=== PATIENT | male | born 1955 | race Caucasian/White ===

== ENCOUNTER 2021-04-04 08:40 | Outpatient (CLI) | payer BC | END 2021-04-04 08:41 | disposition home or self-care (01) | LOC: BICULT 08:40 | PROVIDERS: ATTEND Family Medicine | DX: R10.31 Right lower quadrant pain (principal) | CPT/HCPCS: 76856 ==

== ENCOUNTER 2021-06-24 11:22 | Outpatient (CLI) | payer BC ==
[2021-06-24 13:03] LABS: #Basophils 0.1 10x3/uL (0.0-0.2); #Eosinphils 0.2 10x3/uL (0.0-0.5); #Monocytes 0.9 10x3/uL (0.0-1.1); #Neutrophils 6.2 10x3/uL (1.5-8.4); %Basophils 0.9 % (0.0-2.0); %Lymphocytes 27.1 % (18.0-47.0); %Monocytes 8.7 % (0.0-10.0); %Neutrophils 60.9 % (40.0-75.0); Hemoglobin 16.4 g/dL (13.5-17.5); Mean Corpuscular HGB CONC 34.7 g/dL (32.0-36.0); Mean Corpuscular Hemoglobin 30.8 pg (27.0-33.0); Mean Corpuscular Volume 88.9 fl (81.2-95.1); Mean Platelet Volume 9.1 fl (7.4-10.4); Platelet Count 309 10x3/uL (150-450); RBC Distribution Width 12.4 % (11.5-14.5); Red Blood Cell (RBC) Count 5.32 10x6/uL (4.32-5.72); White Blood Cell (WBC) Count 10.2 10x3/uL (3.5-10.5)
[2021-06-24 13:33] LABS: Anion Gap 15 mmol/L (10-20); BUN (Urea Nitrogen) 11 mg/dL (8.4-25.7); Calc. Creatinine Clearance 0 mL/min (70-130); Calcium 9.9 mg/dL (7.8-10.44); Carbon Dioxide 23 mmol/L (23-31); Chloride 104 mmol/L (98-107); Glucose 138 mg/dL (80-115); Potassium 4.6 mmol/L (3.5-5.1); Sodium 137 mmol/L (136-145)
[2021-06-24 22:15] LABS: SARS-CoV-2 PCR by NAA Not Detected (NotDetected)
== END 2021-06-24 11:23 | disposition home or self-care (01) ==
LOC: LABBT 11:22
PROVIDERS: ATTEND Thoracic Surgery (Cardiothoracic Vascular Surgery)
DX: Z01.818 Encounter for other preprocedural examination (principal); Z20.822 Contact with and (suspected) exposure to COVID-19
CPT/HCPCS: 71045; 80048; 85025; 86850; 86900; 86901; U0003; U0005

== ENCOUNTER 2021-06-24 12:15 | Inpatient (IN) | payer BC ==
[2021-06-23 11:20] VITALS: BMI 30.9
[2021-06-24 13:03] LABS: #Basophils 0.1 10x3/uL (0.0-0.2); #Eosinphils 0.2 10x3/uL (0.0-0.5); #Monocytes 0.9 10x3/uL (0.0-1.1); #Neutrophils 6.2 10x3/uL (1.5-8.4); %Basophils 0.9 % (0.0-2.0); %Lymphocytes 27.1 % (18.0-47.0); %Monocytes 8.7 % (0.0-10.0); %Neutrophils 60.9 % (40.0-75.0); Hemoglobin 16.4 g/dL (13.5-17.5); Mean Corpuscular HGB CONC 34.7 g/dL (32.0-36.0); Mean Corpuscular Hemoglobin 30.8 pg (27.0-33.0); Mean Corpuscular Volume 88.9 fl (81.2-95.1); Mean Platelet Volume 9.1 fl (7.4-10.4); Platelet Count 309 10x3/uL (150-450); RBC Distribution Width 12.4 % (11.5-14.5); Red Blood Cell (RBC) Count 5.32 10x6/uL (4.32-5.72); White Blood Cell (WBC) Count 10.2 10x3/uL (3.5-10.5)
[2021-06-24 13:33] LABS: Anion Gap 15 mmol/L (10-20); BUN (Urea Nitrogen) 11 mg/dL (8.4-25.7); Calc. Creatinine Clearance 0 mL/min (70-130); Calcium 9.9 mg/dL (7.8-10.44); Carbon Dioxide 23 mmol/L (23-31); Chloride 104 mmol/L (98-107); Glucose 138 mg/dL (80-115); Potassium 4.6 mmol/L (3.5-5.1); Sodium 137 mmol/L (136-145)
[2021-06-24 22:15] LABS: SARS-CoV-2 PCR by NAA Not Detected (NotDetected)
[2021-06-28] MEDS ORDERED: Lidocaine 1% MPF 2 ML VIAL ONE (05:49)
[2021-06-28] MEDS ORDERED: Dexamethasone 4 mg/ml Vial ONE (06:32)
[2021-06-28] MEDS ORDERED: Bupivacaine 0.25% HCL 30 ML VIAL ONE (06:32)
[2021-06-28] MEDS ORDERED: PHENYLEPHRINE-NS 100 MCG/ML 10 ML SYRINGE ONE ×2 (06:32→07:36)
[2021-06-28] MEDS ORDERED: EPINEPHrine 1 MG/ML AMP ONE (06:32)
[2021-06-28] MEDS ORDERED: Albumin 5% 500 ML ONE (06:32)
[2021-06-28] MEDS ORDERED: Fentanyl 250 MCG/5 ML VIAL ONE (06:48)
[2021-06-28] MEDS ORDERED: Midazolam HCl 5 mg/5 ml Vial ONE (06:48)
[2021-06-28] MEDS ORDERED: Heparin 10,000 UNITS/1 ML VIAL 30,000 UNITS in Sodium Chloride 0.9% 1,000 ML FS SCH (07:00)
[2021-06-28] MEDS ORDERED: Midazolam HCl 2 mg/2 ml Vial ONE (07:20)
[2021-06-28] MEDS ORDERED: ceFAZolin (BATCH) 2 GM/100 ML BAG ONE (07:21)
[2021-06-28] MEDS ORDERED: Protamine Sulfate 50 MG/5 ML VIAL ONE (07:36)
[2021-06-28] MEDS ORDERED: Lidocaine 2% PF 100 mg/5 ml Syringe ONE (07:36)
[2021-06-28] MEDS ORDERED: Ondansetron PF 4 MG/2 ML Vial ONE (07:36)
[2021-06-28] MEDS ORDERED: PROPOFOL 200 MG/20 ML VIAL ONE (07:36)
[2021-06-28] MEDS ORDERED: Heparin 30,000 units/30 ml VIAL ONE (07:36)
[2021-06-28] MEDS ORDERED: Magnesium Sulfate 1 GM/2 ML VIAL ONE (07:36)
[2021-06-28] MEDS ORDERED: Cardioplegic Soln 1,000 ML BAG ONE (07:36)
[2021-06-28] MEDS ORDERED: ePHEDrine 50 MG/ML VIAL ONE (07:36)
[2021-06-28] MEDS ORDERED: Calcium Chloride 1 GM/10 ML Abboject SYRINGE ONE (07:36)
[2021-06-28] MEDS ORDERED: Glycopyrrolate 0.2 MG/ML 5 ML SYRINGE ONE (07:36)
[2021-06-28] MEDS ORDERED: Mannitol 12.5 GM/50 ML ONE (07:36)
[2021-06-28] MEDS ORDERED: Papaverine 60 MG/2 ML VIAL ONE (07:36)
[2021-06-28] MEDS ORDERED: Vecuronium 10 MG VIAL ONE (07:36)
[2021-06-28] MEDS ORDERED: Heparin 5,000 UNITS/ML VIAL ONE (07:36)
[2021-06-28] MEDS ORDERED: Thrombin 5000 UNITS/5 ML VIAL ONE (07:36)
[2021-06-28] MEDS ORDERED: Aminocaproic Acid 5 GM/20 ML VIAL ONE (07:36)
[2021-06-28] MEDS ORDERED: Sodium Bicarb 50 MEQ/50 ML Abboject 8.4% SYRINGE ONE (07:36)
[2021-06-28] MEDS ORDERED: Fentanyl 100 MCG/2 ML VIAL ONE (10:25)
[2021-06-28] MEDS ORDERED: Bisacodyl 5 MG TAB PO PRN (10:41)
[2021-06-28] MEDS ORDERED: traMADol HCl 50 MG TAB PO PRN (10:41)
[2021-06-28] MEDS ORDERED: Nitroglycerin 50 MG/250 ML BOT 250 ML IVPB PRN (10:41)
[2021-06-28] MEDS ORDERED: Ondansetron PF 4 MG/2 ML Vial IVP PRN (10:41)
[2021-06-28] MEDS ORDERED: Guaifenesin DM 100-10/5 ML UDCUP PO PRN (10:41)
[2021-06-28] MEDS ORDERED: Bisacodyl 10 MG SUPP PR PRN (10:41)
[2021-06-28] MEDS ORDERED: Mag-Al 1200 mg/1200 mg/30 ML UDCUP PO PRN (10:41)
[2021-06-28] MEDS ORDERED: DOPamine 400 MG/D5W 250 ML 250 ML IVPB PRN (10:41)
[2021-06-28] MEDS ORDERED: Potassium Chloride 20 MEQ/100 ML PREMIX BAG IVPB PRN (10:41)
[2021-06-28] MEDS ORDERED: Promethazine HCl 25 MG/ML VIAL IM PRN (10:41)
[2021-06-28] MEDS ORDERED: Fentanyl 100 MCG/2 ML VIAL SLOW IVP PRN (10:41)
[2021-06-28] MEDS ORDERED: Hetastarch 6% 500 ML 500 ML IVPB PRN (10:41)
[2021-06-28] MEDS ORDERED: Morphine 2 MG/ML VIAL SLOW IVP PRN (10:41)
[2021-06-28] MEDS ORDERED: Acetaminophen 325 MG TAB PO PRN (10:41)
[2021-06-28] MEDS ORDERED: Prevnar 13-Val Conj/PF 0.5 ML SYRINGE IM ONE (10:45)
[2021-06-28] MEDS ORDERED: Magnesium 2 GM/50 ML 2 GM in Premix Bag 1 BAG IVPB SCH (10:45)
[2021-06-28] MEDS ORDERED: D5 1/2 NS w/20 mEq KCL 1,000 ML IV SCH (10:45)
[2021-06-28 11:04] LABS: Actual Bicarbonate (HCO3a) 24.7 mEq/L (22-28); Base Excess (BEa) -1.8 mEq/L (-2.0 to +3.0); CO2 Tension 48.9 mmHg (35.0-45.0); Carboxyhemoglobin (COHb) 0.4 gm% (0.0-3.0); Hemoglobin (Hb) 13.3 g/dL (14.0-18.0); O2 Tension (PaO2), arterial 80.6 mmHg (> 80.0); pH, Arterial 7.32 (7.35-7.45)
[2021-06-28 11:05] LABS: ALV-art Gradient 286.075 mmHg (0-20); Puncture Site Arterial Line
[2021-06-28] MEDS ORDERED: Nitroglycerin 50 MG/250 ML BOT 250 ML ONE (11:05)
[2021-06-28 11:13] LABS: Mean Corpuscular HGB CONC 32.9 g/dL (32.0-36.0); Mean Corpuscular Volume 97.2 fL (78.0-98.0); Mean Platelet Volume 6.6 fL (7.4-10.4); Platelet Count 246 thou/uL (130-400); RBC Distribution Width 11.7 % (11.5-14.5); Red Blood Cell (RBC) Count 4.05 mill/uL (4.70-6.10); White Blood Cell (WBC) Count 27.8 thou/uL (4.8-10.8)
[2021-06-28] MEDS ORDERED: Morphine 4 MG/ML VIAL SLOW IVP PRN (11:15)
[2021-06-28] MEDS ORDERED: HUMULIN R 100 UNITS in Sodium Chloride 0.9% 100 ML IVPB SCH (11:15)
[2021-06-28] MEDS ORDERED: Dextrose 5% in Water 1,000 ML IV PRN (11:15)
[2021-06-28] MEDS ORDERED: Dextrose 50% Abboject 50 ML SYRINGE SLOW IVP PRN (11:15)
[2021-06-28 11:20] LABS: INR-International Normal Ratio 1.2; PTT 31.2 sec (22.9-36.1); Prothrombin Time 15.3 sec (12.0-14.7)
[2021-06-28] MEDS: Ketorolac Tromethamine 30 MG/ML VIAL IVP SCH ×2 (11:23→17:10)
[2021-06-28 11:27] LABS: Anion Gap 12 mmol/L (10-20); BUN (Urea Nitrogen) 14 mg/dL (8.4-25.7); Calc. Creatinine Clearance 103 mL/min (70-130); Calcium 7.5 mg/dL (7.8-10.44); Carbon Dioxide 22 mmol/L (23-31); Chloride 110 mmol/L (98-107); Glucose 209 mg/dL (80-115); Potassium 4.5 mmol/L (3.5-5.1); Sodium 139 mmol/L (136-145)
[2021-06-28 11:32] LABS: Band 11 % (5-11); Eosinophils 1 % (0-10); Lymphocytes 16 % (21-51); MDiff Complete? YES; Monocytes 3 % (0-10); Neutrophil 69 % (42-75); Platelet Morphology Comment Appears Adequate; RBC Morphology Normal
[2021-06-28 13:34] LABS: Actual Bicarbonate (HCO3a) 22.9 mEq/L (22-28); Base Excess (BEa) -2.5 mEq/L (-2.0 to +3.0); CO2 Tension 41.8 mmHg (35.0-45.0); Carboxyhemoglobin (COHb) 0.5 gm% (0.0-3.0); Hemoglobin (Hb) 13.6 g/dL (14.0-18.0); O2 Tension (PaO2), arterial 129.4 mmHg (> 80.0); Potassium - ABG Lab 3.91 mmol/L (3.70-5.30); pH, Arterial 7.36 (7.35-7.45)
[2021-06-28 13:36] LABS: Puncture Site Arterial Line
[2021-06-28] MEDS: CEFAZOLIN 2 GM, Admixture Fee 1 EACH in Sodium Chloride 0.9% 100 ML IVPB SCH ×2 (13:52→22:47)
[2021-06-28 16:45] LABS: Hemoglobin 13.6 g/dL (14.0-18.0)
[2021-06-28 16:58] LABS: Potassium 4.1 mmol/L (3.5-5.1)
[2021-06-28] MEDS: Insulin Regular 300 UNITS/3 ML VIAL SC PRN (20:16)
[2021-06-28] MEDS: Atorvastatin Calcium 40 MG TAB PO SCH (20:16)
[2021-06-28] MEDS: Ezetimibe 10 MG TAB PO SCH (20:16)
[2021-06-28] MEDS ORDERED: Famotidine/PF 20 mg/2ml Vial SLOW IVP SCH (21:00)
[2021-06-29] MEDS: Insulin Regular 300 UNITS/3 ML VIAL SC PRN ×2 (00:18→04:11)
[2021-06-29] MEDS: Ketorolac Tromethamine 30 MG/ML VIAL IVP SCH ×5 (00:19→23:16)
[2021-06-29 04:54] LABS: #Lymphocytes 1.2 thou/uL (1.20-3.40); #Monocytes 2.2 thou/uL (0.11-0.59); #Neutrophils 15.4 thou/uL (1.40-6.50); %Basophils 0.1 % (0.0-1.0); %Lymphocytes 6.3 % (21.0-51.0); %Monocytes 11.6 % (0.0-10.0); Hemoglobin 12.6 g/dL (14.0-18.0); Mean Corpuscular HGB CONC 33.3 g/dL (32.0-36.0); Mean Corpuscular Hemoglobin 32.5 pg (27.0-31.0); Mean Corpuscular Volume 97.5 fL (78.0-98.0); Platelet Count 232 thou/uL (130-400); RBC Distribution Width 11.8 % (11.5-14.5); Red Blood Cell (RBC) Count 3.88 mill/uL (4.70-6.10); White Blood Cell (WBC) Count 18.8 thou/uL (4.8-10.8)
[2021-06-29 05:24] LABS: Anion Gap 13 mmol/L (10-20); BUN (Urea Nitrogen) 15 mg/dL (8.4-25.7); Calc. Creatinine Clearance 121 mL/min (70-130); Calcium 7.9 mg/dL (7.8-10.44); Carbon Dioxide 19 mmol/L (23-31); Chloride 106 mmol/L (98-107); Glucose 139 mg/dL (80-115); Potassium 4.3 mmol/L (3.5-5.1); Sodium 134 mmol/L (136-145)
[2021-06-29] MEDS: CEFAZOLIN 2 GM, Admixture Fee 1 EACH in Sodium Chloride 0.9% 100 ML IVPB SCH (06:03)
[2021-06-29] MEDS ORDERED: hydrALAZINE 20 MG/ML VIAL SLOW IVP PRN (06:57)
[2021-06-29] MEDS: Magnesium 2 GM/50 ML 2 GM in Premix Bag 1 BAG IVPB SCH (07:31)
[2021-06-29] MEDS ORDERED: Lisinopril 20 MG TAB PO SCH (09:00)
[2021-06-29] MEDS ORDERED: Aspirin 325 MG TAB PO SCH (09:00)
[2021-06-29] MEDS ORDERED: Insulin Glargine 30 UNITS/0.3 ML VIAL SC PRN (11:06)
[2021-06-29] MEDS: traMADol HCl 50 MG TAB PO PRN (11:27)
[2021-06-29] MEDS: Fentanyl 100 MCG/2 ML VIAL SLOW IVP PRN ×3 (13:58→21:13)
[2021-06-29] MEDS ORDERED: ALPRAZolam 0.25 MG TAB PO PRN (14:15)
[2021-06-29] MEDS: Cyclobenzaprine 10 MG TAB PO PRN ×2 (15:57→21:14)
[2021-06-29] MEDS: Atorvastatin Calcium 40 MG TAB PO SCH (21:14)
[2021-06-29] MEDS: Ezetimibe 10 MG TAB PO SCH (21:14)
[2021-06-30 04:00] LABS: #Lymphocytes 2.2 thou/uL (1.20-3.40); #Monocytes 2.5 thou/uL (0.11-0.59); #Neutrophils 14.5 thou/uL (1.40-6.50); %Basophils 0.1 % (0.0-1.0); %Eosinophils 0.1 % (0.0-10.0); %Lymphocytes 11.5 % (21.0-51.0); %Monocytes 12.8 % (0.0-10.0); %Neutrophils 75.4 % (42.0-75.0); Hemoglobin 11.7 g/dL (14.0-18.0); Mean Corpuscular HGB CONC 33.5 g/dL (32.0-36.0); Mean Corpuscular Hemoglobin 32.7 pg (27.0-31.0); Mean Corpuscular Volume 97.8 fL (78.0-98.0); Mean Platelet Volume 6.5 fL (7.4-10.4); Platelet Count 187 thou/uL (130-400); RBC Distribution Width 11.8 % (11.5-14.5); Red Blood Cell (RBC) Count 3.56 mill/uL (4.70-6.10); White Blood Cell (WBC) Count 19.2 thou/uL (4.8-10.8)
[2021-06-30 04:20] LABS: Anion Gap 10 mmol/L (10-20); BUN (Urea Nitrogen) 21 mg/dL (8.4-25.7); Calc. Creatinine Clearance 102 mL/min (70-130); Carbon Dioxide 24 mmol/L (23-31); Cardiac Risk 2.7 (Less than 4.5); Chloride 105 mmol/L (98-107); Cholesterol 85 mg/dl (< 200 Desired); Glucose 130 mg/dL (80-115); HDL Cholesterol 32 mg/dL (>60 Neg Risk); LDL Cholesterol, Calculated 39 mg/dL; Potassium 4.1 mmol/L (3.5-5.1); Sodium 135 mmol/L (136-145); Triglycerides 71 mg/dL (Less than 150)
[2021-06-30] MEDS: Ketorolac Tromethamine 30 MG/ML VIAL IVP SCH ×3 (06:02→17:23)
[2021-06-30] MEDS: Cyclobenzaprine 10 MG TAB PO PRN ×2 (06:21→11:03)
[2021-06-30] MEDS ORDERED: Milk Of Magnesia 30 ML UDCUP PO PRN (06:58)
[2021-06-30] MEDS ORDERED: Bisacodyl 10 MG SUPP PR PRN (06:58)
[2021-06-30] MEDS ORDERED: Nitroglycerin 0.4 MG TAB (25 Tab Bottle) SL PRN (06:58)
[2021-06-30] MEDS ORDERED: Zolpidem Tartrate 5 MG TAB PO PRN (06:58)
[2021-06-30] MEDS ORDERED: Bisacodyl 5 MG TAB PO PRN (06:58)
[2021-06-30] MEDS ORDERED: Mag-Al 1200 mg/1200 mg/30 ML UDCUP PO PRN (06:58)
[2021-06-30] MEDS ORDERED: Guaifenesin DM 100-10/5 ML UDCUP PO PRN (06:58)
[2021-06-30] MEDS ORDERED: diphenhydrAMINE 25 MG CAP PO PRN (06:58)
[2021-06-30] MEDS ORDERED: Mineral Oil ENEMA PR PRN (06:58)
[2021-06-30] MEDS: Aspirin 325 mg Enteric Coated Tablet PO SCH (08:46)
[2021-06-30] MEDS: Magnesium 2 GM/50 ML 2 GM in Premix Bag 1 BAG IVPB SCH (08:46)
[2021-06-30] MEDS: Atorvastatin Calcium 40 MG TAB PO SCH (21:14)
[2021-06-30] MEDS: Ezetimibe 10 MG TAB PO SCH (21:15)
[2021-06-30] MEDS: traMADol HCl 50 MG TAB PO PRN (21:15)
[2021-07-01] MEDS: Ketorolac Tromethamine 30 MG/ML VIAL IVP SCH ×3 (00:36→16:48)
[2021-07-01 07:38] VITALS: TEMP 97.9
[2021-07-01] MEDS: Aspirin 325 mg Enteric Coated Tablet PO SCH (08:51)
[2021-07-01 14:26] VITALS: BP 160/78
[2021-07-01] MEDS: traMADol HCl 50 MG TAB PO PRN (16:51)
== END 2021-07-01 17:05 | disposition home or self-care (01) | DRG 236 ==
LOC: SURG A 06-28 05:37 → CCU 06-28 10:53
PROVIDERS: ADMIT Thoracic Surgery (Cardiothoracic Vascular Surgery); ATTEND Thoracic Surgery (Cardiothoracic Vascular Surgery)
PROC: 021109W Bypass Coronary Artery, Two Arteries from Aorta with Autologous Venous Tissue, Open Approach (ICD-10-PCS; principal; 2021-06-28)
PROC: 02100Z9 Bypass Coronary Artery, One Artery from Left Internal Mammary, Open Approach (ICD-10-PCS; 2021-06-28)
PROC: 06BQ4ZZ Excision of Left Saphenous Vein, Percutaneous Endoscopic Approach (ICD-10-PCS; 2021-06-28)
PROC: 5A1221Z Performance of Cardiac Output, Continuous (ICD-10-PCS; 2021-06-28)
PROC: 02L70CK Occlusion of Left Atrial Appendage with Extraluminal Device, Open Approach (ICD-10-PCS; 2021-06-28)
DX: I25.10 Atherosclerotic heart disease of native coronary artery without angina pectoris (principal); Z20.822 Contact with and (suspected) exposure to COVID-19; I10 Essential (primary) hypertension; E78.00 Pure hypercholesterolemia, unspecified; E78.2 Mixed hyperlipidemia; I73.9 Peripheral vascular disease, unspecified; Z78.1 Physical restraint status; Z28.82 Immunization not carried out because of caregiver refusal; Z79.899 Other long term (current) drug therapy; Z79.51 Long term (current) use of inhaled steroids; Z79.02 Long term (current) use of antithrombotics/antiplatelets; Z90.89 Acquired absence of other organs; Z98.890 Other specified postprocedural states; Z95.5 Presence of coronary angioplasty implant and graft; Z95.828 Presence of other vascular implants and grafts; Z82.49 Family history of ischemic heart disease and other diseases of the circulatory system; Z80.9 Family history of malignant neoplasm, unspecified; Z87.891 Personal history of nicotine dependence; Z90.49 Acquired absence of other specified parts of digestive tract; Z79.82 Long term (current) use of aspirin
CPT/HCPCS: 36415; 36416; 36430; 71045; 80048; 80061; 82805; 85025; 85610; 85730; 86850; 86900; 86901; 93005; 93010; 93798; 94002; 94150; C1751; J0171; J0690; J1100; J1642; J1644; J1815; J1885; J2001; J2150; J2250; J2405; J2440; J2704; J2720; J3010; J3370; J3475; J3480; J3490; P9045; S0017; S0020; S0028; U0003; U0005

== ENCOUNTER 2021-12-07 10:32 | Outpatient (CLI) | payer MEDICARE, BC ==
[2021-12-07 12:06] LABS: #Basophils 0.1 10x3/uL (0.0-0.2); #Eosinphils 0.1 10x3/uL (0.0-0.5); #Monocytes 0.9 10x3/uL (0.0-1.1); #Neutrophils 6.1 10x3/uL (1.5-8.4); %Basophils 0.9 % (0.0-2.0); %Eosinophils 1.1 % (0.0-6.0); %Lymphocytes 20.9 % (18.0-47.0); %Monocytes 10.2 % (0.0-10.0); %Neutrophils 66.5 % (40.0-75.0); Hemoglobin 15.6 g/dL (13.5-17.5); Mean Corpuscular HGB CONC 34.1 g/dL (32.0-36.0); Mean Corpuscular Hemoglobin 30.4 pg (27.0-33.0); Mean Corpuscular Volume 89.1 fl (81.2-95.1); Platelet Count 332 10x3/uL (150-450); RBC Distribution Width 13.2 % (11.5-14.5); Red Blood Cell (RBC) Count 5.14 10x6/uL (4.32-5.72); White Blood Cell (WBC) Count 9.2 10x3/uL (3.5-10.5)
[2021-12-07 12:57] LABS: Anion Gap 15 mmol/L (10-20); BUN (Urea Nitrogen) 15 mg/dL (8.4-25.7); Calc. Creatinine Clearance 0 mL/min (70-130); Calcium 9.6 mg/dL (7.8-10.44); Carbon Dioxide 25 mmol/L (23-31); Chloride 99 mmol/L (98-107); Estimated GFR 60; Glucose 145 mg/dL (80-115); Potassium 4.5 mmol/L (3.5-5.1); Sodium 134 mmol/L (136-145)
== END 2021-12-07 10:33 | disposition home or self-care (01) ==
LOC: LABBT 10:32
PROVIDERS: ATTEND Surgery
DX: Z01.818 Encounter for other preprocedural examination (principal); Z20.822 Contact with and (suspected) exposure to COVID-19
CPT/HCPCS: 80048; 85025; 87811; 93005; 93010

== ENCOUNTER 2021-12-12 10:16 | Day surgery (SDC) | payer MEDICARE, BC ==
[2021-12-09 11:08] VITALS: BMI 31.3
[2021-12-12] MEDS ORDERED: fentaNYL Citrate/PF 100 MCG/2 ML SYRINGE ONE ×2 (16:08→18:31)
[2021-12-12] MEDS ORDERED: HYDROmorphone 0.5 MG/0.5 ML SYRINGE ONE (16:09)
[2021-12-12] MEDS ORDERED: Bupivacaine/Epinephrine 0.25% 30 ML VIAL ONE (16:12)
[2021-12-12] MEDS ORDERED: Sodium Chloride 0.9% 100 ML ONE (16:25)
[2021-12-12] MEDS ORDERED: CEFAZOLIN 2 GM VIAL ONE (16:25)
[2021-12-12] MEDS ORDERED: Ketorolac Tromethamine 30 MG/ML VIAL ONE (16:40)
[2021-12-12] MEDS ORDERED: Glycopyrrolate 0.2 MG/ML 5 ML SYRINGE ONE (16:40)
[2021-12-12] MEDS ORDERED: Ondansetron PF 4 MG/2 ML Vial ONE (16:40)
[2021-12-12] MEDS ORDERED: Lidocaine 1% MPF 2 ML VIAL ONE (16:40)
[2021-12-12] MEDS ORDERED: NEOSTIGMINE 3 MG/3 ML SYR 3 MG/3 ML SYRINGE ONE (16:40)
[2021-12-12] MEDS ORDERED: Dexamethasone 20 MG/5 ML VIAL ONE (16:40)
[2021-12-12] MEDS ORDERED: PROPOFOL 200 MG/20 ML VIAL ONE (16:40)
[2021-12-12] MEDS ORDERED: Rocuronium Bromide 10 MG/ML (10ML VIAL) ONE (16:40)
[2021-12-12] MEDS ORDERED: Fentanyl 100 MCG/2 ML VIAL ONE (18:05)
[2021-12-12] MEDS ORDERED: HYDROcodone/Acetaminophen 5/325 mg Tablet ONE (19:08)
== END 2021-12-12 19:23 | disposition home or self-care (01) ==
LOC: SDC 10:16
PROVIDERS: ATTEND Surgery
PROC: 0DQV4ZZ Repair Mesentery, Percutaneous Endoscopic Approach (ICD-10-PCS; principal; 2021-12-12)
DX: K40.90 Unilateral inguinal hernia, without obstruction or gangrene, not specified as recurrent (principal); K42.9 Umbilical hernia without obstruction or gangrene; I10 Essential (primary) hypertension; E78.00 Pure hypercholesterolemia, unspecified; Z79.82 Long term (current) use of aspirin; Z79.899 Other long term (current) drug therapy
CPT/HCPCS: 49650; C1781; C1889; J0690; J1100; J1170; J1885; J2405; J2704; J3010; J3490